=== PATIENT | male | born 1975 | race Caucasian/White ===

== ENCOUNTER 2024-10-28 19:49 | Emergency (ER) | payer SELFPAY ==
[2024-10-28 19:54] VITALS: BP 120/80; PULSE 63; RESP 16; TEMP 36.2; O2SAT 100
--- NOTE | 2024-10-28 20:00 | ECG_ITS ---
Test Date: 2024-10-28 20:06:53 Measurements Intervals [place] Rate: 56 P: 42 NH: 183 QRS: 7 QRSD: 117 T: 42 QT: 430 QTc: 418 Interpretive Statements SINUS BRADYCARDIA INTRAVENTRICULAR CONDUCTION DELAY DELAYED PRECORDIAL R/S TRANSITION CONSIDER INFERIOR INFARCT, AGE INDETERMINATE BORDERLINE ST-T WAVE ABNORMALITY- HIGH LATERAL LEADS BASELINE ARTIFACT- I, III, AVR, AVL, AVF, V4, V6 ABNORMAL ECG No previous ECG available for comparison Electronically Signed On 10-29-2024 06:28:29 CDT by Pasucal Gregory D.O.
[2024-10-28 22:27] VITALS: BP 140/69; PULSE 74; RESP 18; O2SAT 100
== END 2024-10-29 00:16 | disposition left against medical advice (07) ==
LOC: ANHED 23:18
PROVIDERS: Emergency Provider Student in an Organized Health Care Education/Training Program; PCP Internal Medicine
DX: R07.2 Precordial pain (principal)
CPT/HCPCS: 93005; 99199